=== PATIENT | female | born 1960 | race Caucasian/White ===

== ENCOUNTER 2022-02-22 11:06 | Day surgery (SDC) | payer BC, OTHER ==
[~2022-02-22] VITALS: Ht 149.9 cm; Wt 67.2 kg
[2022-02-22 13:10] VITALS: BP 150/94; PULSE 62; TEMP 97.6
[2022-02-22] MEDS ORDERED: PRAVACHOL 40MG40 MG PO (13:18)
[2022-02-22] MEDS ORDERED: PROTONIX 40MG T40 MG PO (13:18)
[2022-02-22] MEDS ORDERED: PRINIVIL10 MG PO (13:18)
[2022-02-22] MEDS ORDERED: SYNTHROID0.075 MG/T PO (13:19)
[2022-02-22] MEDS ORDERED: NEURONTIN800 MG/TAB PO (13:21)
[2022-02-22] MEDS ORDERED: REQUIP 1MG T1 MG/TAB PO (13:22)
[2022-02-22] MEDS ORDERED: PRILOTC PO (13:23)
[2022-02-22] MEDS ORDERED: SYSTANE 0.4%-0.1 SOL OU (13:24)
[2022-02-22] MEDS ORDERED: MELATONIN1 MG PO (13:24)
[2022-02-22] MEDS ORDERED: IRON TABLETS325 MG PO (13:25)
[2022-02-22] MEDS ORDERED: VTAMINC250TA PO (13:27)
[2022-02-22] MEDS ORDERED: TYLENOL PM EXTR1 TA1 PO (13:28)
[2022-02-22 14:00] VITALS: BP 98/79; PULSE 57; TEMP 98.2
--- NOTE | 2022-02-22 14:00 | NUR ---
PATIENT TO ROOM 5 VIA CART. ASSIST TO CHAIR X 1. VITAL SIGNS ARE WNL. B/P IS LOW BUT IT'S CLOSE TO HER BASELINE. PATIENT REQUESTS BANANA MUFFIN AND COFFEE. WILL CONTINUE TO MONITOR.
[2022-02-22 14:15] VITALS: BP 109/94; PULSE 58
--- NOTE | 2022-02-22 14:15 | NUR ---
PATIENT IS DOING WELL, VITAL SIGNS ARE WNL. SHE IS WAITING FOR THE DOCTOR TO COME SPEAK TO HER. SHE TOLERATED HER COFFEE AND MUFFIN WELL. DENIES PAIN OR NAUSEA. SPOUSE AT BEDSIDE. WILL CONTINUE TO MONITOR.
[2022-02-22 14:29] VITALS: BP 108/78; PULSE 58
--- NOTE | 2022-02-22 14:30 | NUR ---
PATIENT IS READY FOR DISCHARGE. IV REMOVED. DOCTOR IS AT BEDSIDE. DISCHARGE INSTRUCTIONS REVIEWED. WILL TAKE PATIENT DOWNSTAIRS VIA WHEELCHAIR ONCE SHE IS DRESSED AND READY.
== END 2022-02-22 14:32 | disposition home or self-care (01) ==
LOC: SDCO 11:06
DX: K22.2 Esophageal obstruction (principal); K21.9 Gastro-esophageal reflux disease without esophagitis; I10 Essential (primary) hypertension; G47.33 Obstructive sleep apnea (adult) (pediatric); Z90.49 Acquired absence of other specified parts of digestive tract
CPT/HCPCS: C1726; C1769; J2704; J7030

== ENCOUNTER 2024-05-21 11:27 | Day surgery (SDC) | payer MEDICARE, OTHER ==
[~2024-05-21] VITALS: Ht 149.9 cm; Wt 73.9 kg
[~2024-05-21 11:27] MED LIST: COZAAR 50MG50 MG/TAB PO; DOXYCYCLINE 50M50 MG PO; HCTZ 25MG TAB25 MG PO; IRON TABLETS325 MG PO; LR 1,000 ML IV SCH; MELATONIN1 MG PO; NEURONTIN800 MG/TAB PO; Ondansetron 4 MG/2 ML VIAL IV PRN; PRAVACHOL 40MG40 MG PO; PRILOTC PO; PRINIVIL10 MG PO; PROTONIX 40MG T40 MG PO; REQUIP 1MG T1 MG/TAB PO; SYNTHROID 0.0.025 MG PO; SYNTHROID0.075 MG/T PO; SYSTANE 0.4%-0.1 SOL OU; TYLENOL PM EXTR1 TA1 PO; VTAMINC250TA PO
[2024-05-21 12:09] VITALS: BP 160/85; PULSE 59; TEMP 97
[2024-05-21] MEDS ORDERED: PRAVACHOL 40MG40 MG PO (12:31)
--- NOTE | 2024-05-21 12:42 | NUR ---
The patient ambulated back to [place] [facility] independently using a steady gait and appeared to tolerate the activity well. Vital signs obtained. Consent signed. 20G IV started in right hand with one stick, LR infusing without difficulty. Assessment completed. Home medications reconcilled. went to grab some lunch and will return later. Warm blankets provided. Denies any further needs at this time.
[2024-05-21] MEDS ORDERED: Lidocaine PF 2% (20 MG/ML) 5 ML VIAL ONE (13:08)
[2024-05-21 14:05] VITALS: BP 163/69; PULSE 56; TEMP 97.1
[2024-05-21 14:20] VITALS: BP 168/88; PULSE 56
[2024-05-21 14:35] VITALS: BP 166/86; PULSE 56
--- NOTE | 2024-05-21 14:45 | NUR ---
1405 RETURNS TO ROOM 2 PER CART. AWAKE, ALERT. RESP UNLABORED. AMBULATES TO RECLINER WITH STANDBY ASSIST. DENIES NAUSEA, ABD/CHEST PAIN OR DYSPHAGIA. VITAL SIGNS OBTAINED. CALL LIGHT AT SIDE. IN ROOM 1420 TOLERATES PO JUICE WITHOU NAUSEA. SWALLOWS WITHOUT DIFFICULTY. 1425 DISCHARGE INSTRUCTIONS REVIEWED. PATIENT VERBALIZES UNDERSTANDING. COPY PROVIDED IN DISCHARGE FOLDER 1446 DR. DUPREE HERE TO VISIT WITH PATIENT
== END 2024-05-21 14:48 | disposition home or self-care (01) ==
LOC: SDCO 11:27
DX: K22.2 Esophageal obstruction (principal); G47.33 Obstructive sleep apnea (adult) (pediatric); Z90.49 Acquired absence of other specified parts of digestive tract; Z87.11 Personal history of peptic ulcer disease
CPT/HCPCS: C1726; C1769; J2704; J7120